=== PATIENT | female | born 1970 | race Caucasian/White ===

== ENCOUNTER → 2017-05-13 | Outpatient (CLI) | payer BC ==
[2017-05-13 18:00] LABS: ALBUMIN 3.9 gm/dl (3.4-5.0); ALT/SGPT 27 U/L (12-78); BASO % 0.6 %; BASO ABS # 0.03 K/uL (0-0.2); BLOOD UREA NITROGEN 15 mg/dl (7-18); CALCIUM 8.8 mg/dl (8.5-10.1); CARBON DIOXIDE 26 mmol/L (21-32); CREATININE 0.79 mg/dl (0.60-1.20); EOS % 4.1 %; EOS ABS # 0.22 K/uL (0-0.5); GLUCOSE 86 mg/dl (70-99); HEMATOCRIT 39.6 % (37-47); LYMPH % 26.1 %; LYMPH ABS # 1.39 K/uL (1.2-3.4); MEAN CELL VOLUME 85.3 fL (80-100); MEAN CORPUSCULAR HGB CONC 32.8 g/dl (32-36); MEAN PLATELET VOLUME 9.4 fL (7.4-10.4); MONO % 9.6 %; MONO ABS # 0.51 K/uL (0.11-0.59); NEUT % 59.6 %; NEUT ABS # 3.18 K/uL (1.4-6.5); PLATELET COUNT 240 K/uL (130-400); POTASSIUM 3.7 mmol/L (3.5-5.1); RED CELL DISTRIBUTION WIDTH CV 13.3 % (11.5-14.5); RED CELL DISTRIBUTION WIDTH SD 41.1 fL (36.4-46.3); SODIUM 138 mmol/L (136-145); WHITE BLOOD COUNT 5.33 K/uL (4.8-10.8)
[2017-05-13 18:10] LABS: ALKALINE PHOSPHATASE 73 U/L (45-117); AST/SGOT 15 U/L (15-37); TOTAL PROTEIN 7.5 gm/dl (6.4-8.2)
== END | disposition home or self-care (01) ==
LOC: C.LABMFLN 15:39
PROVIDERS: ATTEND Family Medicine
DX: N92.0 Excessive and frequent menstruation with regular cycle (principal); R53.83 Other fatigue

== ENCOUNTER → 2017-08-13 | Outpatient (CLI) | payer BC | END | disposition home or self-care (01) | LOC: C.LABMFLN 16:38 | PROVIDERS: ATTEND Family Medicine | DX: E55.9 Vitamin D deficiency, unspecified (principal) ==

== ENCOUNTER → 2017-08-14 | Outpatient (CLI) | payer BC ==
[~2017-08-14] VITALS: Ht 160 cm; Wt 125.1 kg
[2017-08-14 13:02] VITALS: BP 129/83; PULSE 89; Ht 160 cm; Wt 125.1 kg
== END | disposition home or self-care (01) ==
LOC: C.NEUR 12:47
PROVIDERS: ATTEND Internal Medicine Pulmonary Disease
DX: R06.83 Snoring (principal); E66.01 Morbid (severe) obesity due to excess calories; R53.83 Other fatigue; G47.19 Other hypersomnia; J45.909 Unspecified asthma, uncomplicated; J30.9 Allergic rhinitis, unspecified; G47.10 Hypersomnia, unspecified

== ENCOUNTER → 2017-08-14 | Outpatient (CLI) | payer BC | END | disposition home or self-care (01) | LOC: C.PAPS 14:19 | PROVIDERS: ATTEND Physician Assistant | DX: Z01.419 Encounter for gynecological examination (general) (routine) without abnormal findings (principal) ==

== ENCOUNTER → 2017-08-25 | Outpatient (CLI) | payer BC | END | disposition home or self-care (01) | LOC: C.RC 12:41 | PROVIDERS: ATTEND Family Medicine | DX: J45.909 Unspecified asthma, uncomplicated (principal) ==

== ENCOUNTER → 2017-08-31 | Outpatient (CLI) | payer BC ==
--- NOTE | 2017-09-01 05:34 | PAP/PSG TECHNICIAN REPORT ---
[facility] Portable Track Crew Chief Polysomnogram Report Study name: None Report date: 09/01/2017 Study date: 08/31/2017 Referring Physician: Ray Lehman M.D. Name: STACIE SALAZAR Miles Interpreting Physician: Ray Lehman M.D. Date of : 1970 Portable Track Crew Chief: KAITLYN Mendoza. Sex: Female Age: 47 StudyType: PSG Weight: 275.8 lbs Height: 47 years, Height 5' 2" Neck Circum:15inches BMI: 50.44 Medications: Breo Ellipta 100-25mcg/act, Fluticasone Propionate 50mcg/act, Omeprazole 40mg, ProAir HFA 108 mcg/act, Sertraline HCl 100mg, Vit D3 [id number] Patient History Study started on room air with no ETCO2 monitoring in room #6.47 yr old female here tonight for a possible split psg if AHI>15 after 2 hours of sleep. She has a history of loud snoring and EDS. She is obese. She has asthma. Her ESS=16/24. Neck circ=15inches. Parameters Monitored NPSG: E1-M2, E2-M1, Fp1-M2, Fp2-M1, F3-M2, F4-M2, F4-M1, C3-M2, C4-M2, C4-M1, O1-M2, O2-M2, O2-M1, T3-M2, T4-M1, P3-M2, P4-M1, CHIN1, CHIN2, HR, EKG, Legs, PFLOW, SNOR, FLOW, CFLOW, Tidal Volume, THOR, ABDO, SpO2, PLTH, CPRESS, ETCO2 Wave, ETCO2, pH Sleep Architecture Sleep Stages Time at Lights Off 9:54:41 PM STAGES Time (min.) TST (%) Time at Lights On 5:30:41 AM Wake 202.5 -- Total Recording Time (TRT) 456.50 min. N1 17.0 7 Total Sleep Period (TSP) 317.5 min. N2 160.0 63 Total Sleep Time (TST) 253.5min. N3 70.5 28 Awake Time 202.5 min. REM 6.0 2 Wake after Sleep Onset 64.0 min. Sleep Efficiency (SE) 56 % Sleep Onset Latency (LOGAN) 138.5 min. Number of Stage 1 Shifts None Awakenings 25 Stage Changes 82 Number of REM periods 1 REM 6.0 2 REM Latency 202.0 min. NREM 247.5 98 Body Position Analysis Supine Right Left Side Prone Vertical Total Sleep Time (min.) 283.5 7.7 54.5 62.24 0.0 0.0 Total Sleep Time (%) 75% 3% 21% 25 0% N/A% Total Sleep Time REM (min.) 6.0 0.0 0.0 None 0.0 0.0 Total Sleep Time NREM (min.) 185.3 7.7 54.5 None 0.0 0.0 Intermittent Wake (min.) 92.2 56.7 53.6 None 0.0 0.0 Total Sleep Period (%) 73% None None None None None Arousals Myoclonus (PLM) * Events Count Index Events Count Index Spontaneous 19 4 Events Awake (PLMW) 164 48.6 Respiratory 6 2.4 Events Asleep w/ Arousal (PLMA) 0 0.0 PLM 0 0 Events Asleep w/o Arousal (PLMS) 5 1.2 Snoring 8 2 Total Asleep 5 1.2 Total 33 8 Total 169 22 Respiratory Analysis * CA OA MA CH H RERA Total Count 0 2 0 0 43 0 45 Index 0.0 0.5 0.0 0 10.2 0 10.7 Mean Duration 0.0 17.9 0.0 0.00 16.5 0.0 16.6 Longest Duration 0.0 21.4 0.0 0.00 0.0 0.0 35.5 Respiratory Event Summary Total Supine ~Supine Right Left Prone REM NREM Apneas Count 2 2 0 0 0 N/A 0 2 Index 0.5 1 0 0.0 0.0 N/A 0 0 Hypopneas (4% Desat) Count 43 38 5 4 1 N/A 2 41 Index 10.2 11.9 5 31.0 1.1 N/A 20.0 9.9 Apneas & All Hypopneas Count 45 40 5 4 1 N/A 2 43 Index 10.7 13 5 31 1 N/A 20.0 10.4 Respiratory Events (Mailing Section Clerk+All Hyp+RERA) Count 45 40 5 4 1 N/A 2 43 Index 10.7 13 5 31.0 1.1 N/A 20.0 10.4 Respiratory Related Arousal Count 6 40 0 0 0 N/A 0 10 Index 2.4 3 0 0 0 N/A 0 2 Snoring Analysis Supine Right Left Prone REM NREM Total Snore duration 44.5 min Snores count 1,094 42 726 N/A 23 1,839 1,862 Snore mean duration 1.4 Sec Snores index 343 326 799 N/A 230.0 445.8 440.7 TST with snoring (%) 17.6% Desaturation Event Summary: Minimum %SpO2 Event Count Mean/Min/Max Duration(sec.) Desaturation Index % Time In Bed > 90 165 17.9 / 0.0 / 60.0 29.6 76.4 86 - 90 18 25.3 / 4.8 / 60.0 10.5 23.4 81 - 85 0 N/A 0.0 0.2 76 - 80 0 N/A 0.0 0.0 71 - 75 0 N/A 0.0 0.0 66 - 70 0 N/A 0.0 0.0 61 - 65 0 N/A 0.0 0.0 56 - 60 0 N/A 0.0 0.0 51 - 55 0 N/A 0.0 0.0 < 50 0 N/A 0.0 0.0 Total REM NREM Awake <50% 0.0 min. 0.0 min. 0.0 min. 0.0 min. 51 - 60% 0.0 min. 0.0 min. 0.0 min. 0.0 min. 61 - 70% 0.0 min. 0.0 min. 0.0 min. 0.0 min. 71 - 80% 0.0 min. 0.0 min. 0.0 min. 0.0 min. 81 - 90% 103.6 min. 1.9 min. 82.6 min. 19.2 min. 91 - 100% 334.8 min. 4.1 min. 164.3 min. 166.3 min. Average 92 91 91 93 Minimum SpO2 81 86 84 81 Desaturation Event Index 22.2 40.0 18.2 27.9 # Desat. Events below 89% 45 2 27 16 Time(%) with Saturation below 89% 5.3 0.2 4.5 0.6 Time(min.) with Saturation below 89% 23.1 0.9 19.5 2.7 Time (mins) REM (mins) NREM (mins) % of TST SpO2 Below 90% 70 4 N66 19.4 SpO2 Below 88% 11 0 0 3 Heart Rate Analysis Min (bpm) Max (bpm) Average (bpm) Awake 30 167 83 NREM 68 97 78 REM 70 83 76 Overall 68 97 78 Supplemental O2 Values Minimum O2 level: None Value Start Time End Time Portable Track Crew Chief Comments Mrs. Salazar slept in the right and supine position. No cardiac arrhythmia noted. Some leg movements were noted. No bruxism noted. Snoring was noted and scored as a 3 on a scale of 1 through 5. (0=no snoring, 5=snoring loud enough to be heard through a closed door or down the [address] way) She used the restroom 2 times during the night. She stated that she slept poorly. The final report will be interpreted and signed by a sleep physician. The completed physician report will then be placed in the patient medical record. Therapy (cm H2O) 0 TIB (min.) 456.0 TST (min.) 253.5 Sleep Onset (min.) 138.5 REM Onset From Sleep (min.) 202.0 Sleep Efficiency % 56 Wakefulness (%) 44 Wakefulness (min.) 202.5 NREM 1 (%) 7 NREM 1 (min.) 17.0 NREM 2 (%) 63 NREM 2 (min.) 160.0 NREM 3 (%) 28 NREM 3 (min.) 70.5 REM (%) 2 REM (min.) 6.0 # Arousals 33 Arousal Index 8 # Snore 1,862 Snore Index 440.7 AHI 10.7 AHI Supine 13 AHI Non-Supine 5 NREM AHI 10.4 REM AHI 20.0 RDI 10.7 # Obstructive Apnea 2 # Central Apnea 0 # Mixed Apnea 0 # Hypopneas 43 RERAs 0 Total Respiratory Events 46 Time Below SpO2 89% (min.) 20.4 Mean NREM SpO2 (%) 91 Mean REM SpO2 (%) 91 Mean Sleep SpO2 (%) 91 Min NREM SpO2 (%) 84 Min REM SpO2 (%) 86 Position Supine (min.) 283.5 Position Non-supine (min.) 62.2 LM Index Sleep 1.2 LM Index NREM 1.2 LM Index REM 0.0 Mean Heart Rate (bpm) 78 Min Heart Rate (bpm) 68
--- NOTE | 2017-09-02 17:32 | POLYSOMNOGRAPH REPORT ---
CLINICAL DATA: A 47-year-old female with BMI of 50.[address] Joel and myself with loud snoring, excessive daytime sleepiness, obesity, and asthma. Her [place] sleepiness score is 16/24. SLEEP ARCHITECTURE: Total recording time was 456.5 minutes. Total sleep period was 317.5 minutes. Total sleep time was 253 minutes divided between 247.5 minutes of non-REM sleep and 6 minutes of REM sleep. Sleep latency was markedly delayed at 138.5 minutes. REM latency was 202 minutes. Sleep efficiency was severely reduced at 56%. Wake after sleep onset was elevated at 64 minutes. Sleep consisted of stage N1 7%, stage N2 63%, stage N3 28%, and REM 2%. AROUSAL DATA: 33 arousals were recorded for an index of 8 per hour; 8 were due to snoring events. PLM DATA: 5 limb movements during sleep were noted for an index of 1.2 per hour with an arousal index of 0. RESPIRATORY DATA: Mild sleep apnea was documented. The AHI was 10.7. There were 2 obstructive apneic episodes. The longest duration of apnea was 21.4 seconds. There were 42 hypopneic episodes with mean duration of 16.5 seconds. OXIMETRY DATA: Nocturnal hypoxemia was seen. Oxygen elizabeth was 84% during non-REM sleep. Mean saturation was 92%. Time below 88% was 11 minutes. EKG: Heart rates ranged from 68-97 beats per minute. No arrhythmias were noted. STEAMTABLE WORKER'S COMMENTS: The patient slept in the right and supine position. Snoring was moderate, rated 3 on a scale of 1 through 5. The patient did not reach an adequate AHI soon enough to meet modified split night criteria for a modified split night protocol. IMPRESSION: Mild sleep apnea/hypopnea with an AHI of 10.7 with mild nocturnal hypoxemia. RECOMMENDATIONS: The patient may benefit from use of auto CPAP, use of an oral appliance, or repeat sleep study with CPAP. If the repeat sleep study with CPAP is considered, Ambien or Lunesta should be used for the next study. [facility]
== END | disposition home or self-care (01) ==
LOC: C.NEUR 20:00
PROVIDERS: ATTEND Internal Medicine Pulmonary Disease
DX: G47.30 Sleep apnea, unspecified (principal); G47.36 Sleep related hypoventilation in conditions classified elsewhere; R06.83 Snoring; G47.19 Other hypersomnia; R53.83 Other fatigue; J30.9 Allergic rhinitis, unspecified; J45.909 Unspecified asthma, uncomplicated; E66.01 Morbid (severe) obesity due to excess calories; Z68.43 Body mass index [BMI] 50.0-59.9, adult; Z79.899 Other long term (current) drug therapy